=== PATIENT | female | born 1955 | race Caucasian/White ===

== ENCOUNTER 2023-01-15 06:33 | Inpatient (IN) | payer MEDICARE, BC, OTHER ==
[2023-01-15] VITALS (11 sets, daily range): BP systolic 145–188; BP diastolic 70–92
[~2023-01-15] VITALS: Ht 170.2 cm; Wt 88.5 kg
[~2023-01-15 06:33] MED LIST: ADV250INH INH; CARV12.5 PO; IRON65TA2 PO; LISI20TA33 PO; LR 1,000 ML IV SCH; METH10TA PO; OMEP-173 PO; VENL75TA2 PO; VITA-199 PO
[2023-01-15] MEDS ORDERED: ceFAZolin SOD 2 GM in IV 1 EA IV ONE (06:50)
[2023-01-15] MEDS ORDERED: LISI10TA22 PO (07:04)
[2023-01-15] MEDS ORDERED: VENL75CA47 PO (07:04)
[2023-01-15] MEDS ORDERED: HOME MED LIST COMPLETE! XX SCH (07:05)
[2023-01-15] MEDS ORDERED: LIDOCAINE 1% SDV 30ML VIAL As Ordered ONE (07:12)
[2023-01-15] MEDS ORDERED: BUPIVACAINE HCL 0.25% 30ML VIAL As Ordered ONE (07:12)
[2023-01-15] MEDS ORDERED: MIDAZOLAM INJ 2MG/2ML VIAL As Ordered ONE (07:25)
[2023-01-15] MEDS ORDERED: ROCURONIUM BROMIDE 50MG/5ML VIAL As Ordered ONE ×2 (07:25→11:26)
[2023-01-15] MEDS ORDERED: ONDANSETRON 4MG 2ML VIAL As Ordered ONE (07:25)
[2023-01-15] MEDS ORDERED: propofoL 200 MG/20 ML VIAL As Ordered ONE ×2 (07:25→11:36)
[2023-01-15] MEDS ORDERED: fentaNYL 100 MCG/2 ML INJECTION As Ordered ONE (07:25)
[2023-01-15] MEDS ORDERED: LIDOCAINE 2% 100MG/5ML SDV (FOR ANES.) As Ordered ONE (07:25)
[2023-01-15] MEDS ORDERED: HYDROmorphone HCL 2MG/ML 1ML VIAL As Ordered ONE (07:25)
[2023-01-15] MEDS ORDERED: ACETAMINOPHEN 1000MG 100ML IV BAG As Ordered ONE (07:25)
[2023-01-15] MEDS ORDERED: PERCOCET 5MG/325MG TAB PO PRN (07:35)
[2023-01-15] MEDS ORDERED: ACETAMINOPHEN TAB 650MG DOSE (2X325MG) PO PRN (07:35)
[2023-01-15] MEDS ORDERED: ONDANSETRON 4MG 2ML VIAL IV PRN ×2 (07:35→12:05)
[2023-01-15] MEDS: NS 1,000 ML IV SCH ×3 (07:35→23:13)
[2023-01-15] MEDS ORDERED: ePHEDrine SULFATE 25 MG/5 ML(5MG/ML) SYRINGE As Ordered ONE (08:27)
[2023-01-15] MEDS ORDERED: GLYCOPYRROLATE INJ 0.2 MG/ML 2 ML VIAL As Ordered ONE (08:33)
[2023-01-15] MEDS ORDERED: SUGAMMADEX SODIUM 500 MG/5 ML VIAL (BRIDION) As Ordered ONE (08:51)
[2023-01-15] MEDS ORDERED: PHENYLephrine 500MCG 5ML (100MCG/ML) SYRINGE As Ordered ONE (11:26)
[2023-01-15] MEDS ORDERED: LABETALOL 100MG/20ML VIAL As Ordered ONE (11:26)
[2023-01-15] MEDS ORDERED: METOCLOPRAMIDE INJ 10MG/2ML VIAL IV PRN (12:05)
[2023-01-15] MEDS ORDERED: LR 1,000 ML IV SCH (12:05)
[2023-01-15] MEDS ORDERED: HYDROMORPHONE HCL 0.5 MG/ 0.5 ML SYRINGE IV PRN (12:05)
[2023-01-15] MEDS ORDERED: hydrALAZINE 20MG/ML 1ML VIAL As Ordered ONE (12:08)
[2023-01-15] MEDS: oxyCODONE 5MG TAB PO PRN ×2 (12:55→13:23)
[2023-01-15] MEDS: fentaNYL 100 MCG/2 ML INJECTION IV PRN ×4 (12:57→13:36)
[2023-01-15 13:10] LABS: HEMATOCRIT 35.1 % (36.0-47.0); HEMOGLOBIN 10.7 g/dl (12.0-15.5); MEAN CORPUSCULAR HEMOGLOBIN 26.2 pg (27.0-33.0); MEAN CORPUSCULAR HGB CONC 30.5 g/dl (32.0-36.5); MEAN CORPUSCULAR VOLUME 85.8 fl (80.0-96.0); PLATELET COUNT, AUTOMATED 205 10^3/uL (150-450); RED BLOOD COUNT 4.09 10^6/uL (4.00-5.40); WHITE BLOOD COUNT 8.3 10^3/uL (4.0-10.0)
[2023-01-15 13:31] LABS: CALCIUM LEVEL 8.2 MG/DL (8.3-10.6); CREATININE FOR GFR 1.22 MG/DL (0.55-1.30); GLOMERULAR FILTRATION RATE 46.7 (>45); POTASSIUM SERUM 4.3 MMOL/L (3.5-5.1)
[2023-01-15] MEDS ORDERED: MORPHINE 2 MG/ML 1ML VIAL IV ONE (16:00)
[2023-01-15] MEDS: ceFAZolin SOD 1 GM in D5W MINI-BAG PLUS 50 ML IV SCH ×2 (16:04→23:13)
[2023-01-15] MEDS: CARVedilol 12.5 MG TAB PO SCH ×2 (17:14→17:21)
[2023-01-15] MEDS: PERCOCET 5MG/325MG TAB PO PRN ×2 (17:21→21:19)
[2023-01-15] MEDS: ADVAIR HFA 115/21MCG INHALER INH SCH (19:32)
[2023-01-15] MEDS: DOCUSATE SODIUM 100MG CAPSULE PO SCH (19:58)
[2023-01-16] VITALS (9 sets, daily range): BP systolic 144–196; BP diastolic 78–98
[2023-01-16] MEDS: PERCOCET 5MG/325MG TAB PO PRN ×3 (01:23→16:53)
[2023-01-16 06:57] LABS: HEMATOCRIT 31.4 % (36.0-47.0); HEMOGLOBIN 9.7 g/dl (12.0-15.5); MEAN CORPUSCULAR HEMOGLOBIN 26.1 pg (27.0-33.0); MEAN CORPUSCULAR HGB CONC 30.9 g/dl (32.0-36.5); MEAN CORPUSCULAR VOLUME 84.4 fl (80.0-96.0); PLATELET COUNT, AUTOMATED 200 10^3/uL (150-450); RED BLOOD COUNT 3.72 10^6/uL (4.00-5.40); WHITE BLOOD COUNT 8.6 10^3/uL (4.0-10.0)
[2023-01-16] MEDS: ADVAIR HFA 115/21MCG INHALER INH SCH ×2 (07:14→19:48)
[2023-01-16 07:29] LABS: CALCIUM LEVEL 8.3 MG/DL (8.3-10.6); CREATININE FOR GFR 1.62 MG/DL (0.55-1.30); GLOMERULAR FILTRATION RATE 33.6 (>45)
[2023-01-16] MEDS: DOCUSATE SODIUM 100MG CAPSULE PO SCH ×2 (08:13→20:14)
[2023-01-16] MEDS: OMEPRAZOLE 20MG CAP PO SCH (08:14)
[2023-01-16] MEDS: CARVedilol 12.5 MG TAB PO SCH ×2 (08:15→16:15)
[2023-01-16] MEDS: VENLAFAXINE **XR** 75MG CAPSULE PO SCH (08:15)
[2023-01-16] MEDS ORDERED: COLA100C5 PO (17:39)
[2023-01-16] MEDS ORDERED: PERCOCET PO (17:39)
[2023-01-17 01:49] VITALS: BP 176/84
[2023-01-17] MEDS: PERCOCET 5MG/325MG TAB PO PRN ×2 (03:23→07:57)
[2023-01-17 05:27] VITALS: BP 178/82
[2023-01-17 06:21] LABS: HEMATOCRIT 30.6 % (36.0-47.0); MEAN CORPUSCULAR HEMOGLOBIN 25.8 pg (27.0-33.0); MEAN CORPUSCULAR HGB CONC 29.4 g/dl (32.0-36.5); MEAN CORPUSCULAR VOLUME 87.7 fl (80.0-96.0); PLATELET COUNT, AUTOMATED 176 10^3/uL (150-450); RED BLOOD COUNT 3.49 10^6/uL (4.00-5.40); WHITE BLOOD COUNT 6.4 10^3/uL (4.0-10.0)
[2023-01-17 06:43] LABS: CALCIUM LEVEL 7.9 MG/DL (8.3-10.6); CREATININE FOR GFR 1.77 MG/DL (0.55-1.30); GLOMERULAR FILTRATION RATE 30.4 (>45); POTASSIUM SERUM 3.9 MMOL/L (3.5-5.1)
[2023-01-17] MEDS: ADVAIR HFA 115/21MCG INHALER INH SCH (07:12)
[2023-01-17] MEDS: OMEPRAZOLE 20MG CAP PO SCH (07:54)
[2023-01-17] MEDS: VENLAFAXINE **XR** 75MG CAPSULE PO SCH (07:54)
[2023-01-17 07:55] VITALS: BP 178/82
[2023-01-17] MEDS: DOCUSATE SODIUM 100MG CAPSULE PO SCH (07:55)
[2023-01-17] MEDS: CARVedilol 12.5 MG TAB PO SCH (07:55)
== END 2023-01-17 09:10 | disposition home or self-care (01) | DRG 658 ==
LOC: M OR 06:33 → M MS4PR 14:04 → M MS5PR 01-16 16:49
PROVIDERS: ADMIT Urology; ATTEND Urology
PROC: 8E0W4CZ Robotic Assisted Procedure of Trunk Region, Percutaneous Endoscopic Approach (ICD-10-PCS; 2023-01-08)
PROC: 0TT04ZZ Resection of Right Kidney, Percutaneous Endoscopic Approach (ICD-10-PCS; principal; 2023-01-15 07:30)
DX: C64.1 Malignant neoplasm of right kidney, except renal pelvis (principal); Z88.8 Allergy status to other drugs, medicaments and biological substances; Z79.899 Other long term (current) drug therapy; I10 Essential (primary) hypertension

== ENCOUNTER → 2023-01-29 | Outpatient (CLI) | payer MEDICARE, BC, OTHER ==
[~2023-01-29] MED LIST changes: +COLA100C5 PO; +LISI10TA22 PO; -LR 1,000 ML IV SCH; +PERCOCET PO; +VENL75CA47 PO
[2023-01-29 13:49] LABS: CALCIUM LEVEL 8.6 MG/DL (8.3-10.6); CREATININE FOR GFR 1.6 MG/DL (0.55-1.30); GLOMERULAR FILTRATION RATE 34.1 (>45); POTASSIUM SERUM 3.9 MMOL/L (3.5-5.1)
[2023-01-29 13:52] LABS: HEMATOCRIT 36.5 % (36.0-47.0); MEAN CORPUSCULAR HEMOGLOBIN 25.6 pg (27.0-33.0); MEAN CORPUSCULAR HGB CONC 30.1 g/dl (32.0-36.5); MEAN CORPUSCULAR VOLUME 84.9 fl (80.0-96.0); PLATELET COUNT, AUTOMATED 362 10^3/uL (150-450); WHITE BLOOD COUNT 6.4 10^3/uL (4.0-10.0)
== END ==
LOC: M PLALAB 11:35
PROVIDERS: ATTEND Urology
DX: C64.1 Malignant neoplasm of right kidney, except renal pelvis (principal); Z90.5 Acquired absence of kidney

== ENCOUNTER → 2023-08-22 | Outpatient (CLI) | payer MEDICARE, BC, OTHER ==
[~2023-08-22] MED LIST changes: +ISOVUE-370 76% 100ML VIAL As Ordered ONE
== END ==
LOC: M RAD 10:53
PROVIDERS: ATTEND Urology
DX: C64.1 Malignant neoplasm of right kidney, except renal pelvis (principal); Z90.5 Acquired absence of kidney; R93.5 Abnormal findings on diagnostic imaging of other abdominal regions, including retroperitoneum
CPT/HCPCS: 74170; Q9967

== ENCOUNTER → 2024-02-17 | Outpatient (REF) | payer MEDICARE, OTHER ==
[~2024-02-17] MED LIST changes: -ISOVUE-370 76% 100ML VIAL As Ordered ONE
[2024-02-17 17:51] LABS: APPEARANCE, URINE TURBID (CLEAR); BACTERIA, URINE AUTO 3+ (NEGATIVE); BILIRUBIN, URINE AUTO NEGATIVE (NEGATIVE); BLOOD, URINE BLOOD 1+ (NEGATIVE); COLOR, URINE AMBER (YELLOW); GLUCOSE, URINE (UA) AUTO NEGATIVE (NEGATIVE); KETONE, URINE AUTO NEGATIVE (NEGATIVE); LEUKOCYTE ESTERASE, URINE AUTO 3+ (NEGATIVE); MUCUS, URINE SMALL (NEGATIVE); NITRITE, URINE AUTO NEGATIVE (NEGATIVE); PROTEIN, URINE AUTO 1+ mg/dL (NEGATIVE); RBC, URINE AUTO 18 /HPF (0-3); SPECIFIC GRAVITY URINE AUTO 1.024 (1.002-1.035); SQUAMOUS EPITHELIAL CELL UR AU 17 /HPF (0-6); UROBILINOGEN, URINE AUTO 0.2 mg/dL (0.0-2.0); WBC, URINE AUTO TNTC /HPF (0-3)
== END ==
LOC: M SMT 17:00
PROVIDERS: ATTEND Urology
DX: R32 Unspecified urinary incontinence (principal)

== ENCOUNTER → 2024-04-02 | Outpatient (REF) | payer MEDICARE, OTHER ==
[2024-04-02 17:55] LABS: APPEARANCE, URINE HAZY (CLEAR); BACTERIA, URINE AUTO NEGATIVE (NEGATIVE); BILIRUBIN, URINE AUTO NEGATIVE (NEGATIVE); BLOOD, URINE BLOOD NEGATIVE (NEGATIVE); COLOR, URINE YELLOW (YELLOW); GLUCOSE, URINE (UA) AUTO NEGATIVE (NEGATIVE); KETONE, URINE AUTO NEGATIVE (NEGATIVE); LEUKOCYTE ESTERASE, URINE AUTO 3+ (NEGATIVE); NITRITE, URINE AUTO NEGATIVE (NEGATIVE); PROTEIN, URINE AUTO NEGATIVE (NEGATIVE); RBC, URINE AUTO 7 /HPF (0-3); SPECIFIC GRAVITY URINE AUTO 1.013 (1.002-1.035); SQUAMOUS EPITHELIAL CELL UR AU 3 /HPF (0-6); UROBILINOGEN, URINE AUTO 0.2 mg/dL (0.0-2.0); WBC, URINE AUTO 18 /HPF (0-3)
== END ==
LOC: M SMT 16:47
PROVIDERS: ATTEND Urology
DX: N39.41 Urge incontinence (principal); R31.29 Other microscopic hematuria